=== PATIENT | male | born 1955 | race Caucasian/White ===

== ENCOUNTER 2023-03-05 12:50 | Emergency (ER) | payer OTHER ==
[~2023-03-05 12:50] MED LIST: Lactated Ringer's 1,000 ML BAG ONE
[2023-03-05] MEDS ORDERED: Albuterol 2.5 MG/0.5 ML NEB ONE ×2 (14:02→15:53)
[2023-03-05] MEDS ORDERED: Ipratropium/Albuterol 3 ML NEB ONE ×3 (14:02→17:41)
[2023-03-05 14:41] LABS: Base Excess-Venous 1.3 mmol/L (-2.0 to 3.0); CO2 Tension (PvCO2) 45.2 mmHg (42.0-51.0); Calcium, Ionized 1.12 mmol/L (1.15-1.33); Chloride 101 mmol/L (98-107); Hemoglobin - Calc 16.6 g/dL (14.0-18.0); Potassium 3.9 mmol/L (3.5-5.1); Sodium 139 mmol/L (138-145); T. Carbon Dioxide 28.3 mmol/L (22.0-28.0); vO2 Saturation-calc 99.1 % (60.0-85.0)
[2023-03-05] MEDS ORDERED: methylPREDNISolone Sod Succ/PF 125 MG/2 ML VIAL ONE (14:47)
[2023-03-05] MEDS ORDERED: Nitroglycerin 2% Ointment 1 INCH/1 GM Packet ONE (14:47)
[2023-03-05] MEDS ORDERED: Aspirin Chewable 81 MG TAB ONE (14:48)
[2023-03-05 14:49] LABS: INR-International Normal Ratio 1.1; Prothrombin Time 14.7 sec (12.0-14.7)
[2023-03-05 14:50] LABS: PTT 39.1 sec (22.9-36.1)
[2023-03-05 14:53] LABS: ALT (SGPT) 29 U/L (8-55); AST (SGOT) 40 U/L (5-34); Alkaline Phosphatase 43 U/L (40-110); Anion Gap 15 mmol/L (10-20); BUN (Urea Nitrogen) 25 mg/dL (8.4-25.7); Bilirubin, Total 0.5 mg/dL (0.2-1.2); Calc. Creatinine Clearance 0 mL/min (70-130); Calcium 8.6 mg/dL (7.8-10.44); Carbon Dioxide 24 mmol/L (23-31); Chloride 101 mmol/L (98-107); Estimated GFR 48; Globulin 3.5 g/dL (2.4-3.5); Glucose 109 mg/dL (80-115); Lipase 24 U/L (8-78); Magnesium 1.7 mg/dL (1.6-2.6); Protein, Total 7.5 g/dL (5.8-8.1); Sodium 136 mmol/L (136-145)
[2023-03-05 15:03] LABS: Hematocrit 46.3 % (42.0-52.0); Hemoglobin 14.8 g/dL (14.0-18.0); Mean Corpuscular HGB CONC 31.9 g/dL (32.0-36.0); Mean Corpuscular Hemoglobin 30.8 pg (27.0-31.0); Mean Corpuscular Volume 96.7 fl (78.0-98.0); Platelet Count 144 10x3/uL (130-400); RBC Distribution Width 14.6 % (11.5-14.5); Red Blood Cell (RBC) Count 4.79 mill/uL (4.70-6.10); White Blood Cell (WBC) Count 6.1 10x3/uL (4.8-10.8)
[2023-03-05 15:17] LABS: Troponin I 0.289 ng/mL (< 0.028)
[2023-03-05 15:18] LABS: SARS-CoV-2 NAA Rapid Test Not Detected (NotDetected)
[2023-03-05 15:23] LABS: Lymphocytes 4 % (21-51); MDiff Complete? YES; Manual Diff?? YES; Monocytes 7 % (0-10); Neutrophil 77 % (42-75); Reactive Lymphocytes 12 % (0-10)
[2023-03-05 15:24] LABS: Platelet Adequacy Comment Appears Decreased; RBC Morph Comment Within Normal Limits
[2023-03-05] MEDS ORDERED: Oseltamivir 75 MG CAP ONE (15:31)
[2023-03-05] MEDS ORDERED: Acetaminophen 325 MG TAB ONE (17:42)
[2023-03-05 18:06] LABS: Troponin I 0.242 ng/mL (< 0.028)
== END 2023-03-05 18:43 | disposition short-term general hospital (02) ==
LOC: MADERS 12:50
DX: I21.4 Non-ST elevation (NSTEMI) myocardial infarction (principal); I13.0 Hypertensive heart and chronic kidney disease with heart failure and stage 1 through stage 4 chronic kidney disease, or unspecified chronic kidney disease; N18.9 Chronic kidney disease, unspecified; I50.9 Heart failure, unspecified; J45.909 Unspecified asthma, uncomplicated; J10.1 Influenza due to other identified influenza virus with other respiratory manifestations; E03.9 Hypothyroidism, unspecified; I25.10 Atherosclerotic heart disease of native coronary artery without angina pectoris; E66.9 Obesity, unspecified; Z20.822 Contact with and (suspected) exposure to COVID-19
CPT/HCPCS: 36415; 71045; 80053; 82330; 82803; 83605; 83690; 83735; 83880; 84484; 85025; 85379; 85610; 85730; 87040; 87804; 93005; 94760; 96361; 96372; 96374; J1650; J2930; J7120; J7611; J7620; U0002

== ENCOUNTER 2024-12-16 07:50 | Outpatient (CLI) | payer MEDICARE, MEDICAID ==
[2024-12-16 10:07] LABS: Glucose, Urine (Dipstick) Negative (Negative); Leukocyte Negative (Negative); Protein, Urine (Dipstick) Trace mg/dL (Neg-Trace); Specific Gravity, Urine Greater/Equal 1.030 (1.005-1.030)
[2024-12-16 10:18] LABS: Albumin 3.9 g/dL (3.1-4.5); Anion Gap 16 mmol/L (10-20); BUN (Urea Nitrogen) 29 mg/dL (8.4-25.7); BUN/Creatinine Ratio 17.68; Calc. Creatinine Clearance 0 mL/min (70-130); Calcium 9.4 mg/dL (7.8-10.44); Carbon Dioxide 20 mmol/L (23-31); Chloride 107 mmol/L (98-107); Glucose 104 mg/dL (80-115); Potassium 3.8 mmol/L (3.5-5.1); Sodium 139 mmol/L (136-145)
[2024-12-16 10:28] LABS: Bacteria/HPF Rare-Few HPF (None Seen); Mucous/LPF 1+ LPF (<2+); RBC/HPF 0-3 HPF (0-3); WBC/HPF 0-3 HPF (0-3)
== END 2024-12-16 07:51 | disposition home or self-care (01) ==
LOC: MADLAB 07:50
PROVIDERS: ATTEND Internal Medicine Nephrology
DX: I12.9 Hypertensive chronic kidney disease with stage 1 through stage 4 chronic kidney disease, or unspecified chronic kidney disease (principal); N18.30 Chronic kidney disease, stage 3 unspecified
CPT/HCPCS: 36415; 80069; 81001; 82043

== ENCOUNTER 2025-01-13 09:08 | Outpatient (CLI) | payer OTHER, MEDICAID ==
[2025-01-13 09:33] LABS: Albumin 3.6 g/dL (3.1-4.5); Anion Gap 14 mmol/L (10-20); BUN (Urea Nitrogen) 20 mg/dL (8.4-25.7); BUN/Creatinine Ratio 16.00; Calc. Creatinine Clearance 0 mL/min (70-130); Calcium 8.4 mg/dL (7.8-10.44); Carbon Dioxide 24 mmol/L (23-31); Chloride 108 mmol/L (98-107); Glucose 108 mg/dL (80-115); Potassium 4.2 mmol/L (3.5-5.1); Sodium 142 mmol/L (136-145)
[2025-01-13 16:15] LABS: Sodium, Urine 145.0 mmol/L (Not Available)
== END 2025-01-13 09:09 | disposition home or self-care (01) ==
LOC: MADLAB 09:08
PROVIDERS: ATTEND Internal Medicine Nephrology
DX: N17.9 Acute kidney failure, unspecified (principal); R82.4 Acetonuria
CPT/HCPCS: 36415; 80069; 82570; 83036; 84300

== ENCOUNTER 2025-04-15 08:48 | Outpatient (CLI) | payer OTHER, MEDICAID ==
[2025-04-15 09:27] LABS: Albumin 3.9 g/dL (3.1-4.5); Anion Gap 14 mmol/L (10-20); BUN (Urea Nitrogen) 26 mg/dL (8.4-25.7); BUN/Creatinine Ratio 20.00; Calc. Creatinine Clearance 0 mL/min (70-130); Calcium 8.6 mg/dL (7.8-10.44); Carbon Dioxide 24 mmol/L (23-31); Chloride 106 mmol/L (98-107); Glucose 129 mg/dL (80-115); Potassium 3.9 mmol/L (3.5-5.1); Sodium 140 mmol/L (136-145)
[2025-04-15 15:42] LABS: Sodium, Urine 105.0 mmol/L (Not Available)
== END 2025-04-15 08:49 | disposition home or self-care (01) ==
LOC: MADLAB 08:48
PROVIDERS: ATTEND Internal Medicine Nephrology
DX: N17.9 Acute kidney failure, unspecified (principal); R82.4 Acetonuria
CPT/HCPCS: 36415; 80069; 82570; 83036; 84300